=== PATIENT | male | born 1950 | race Caucasian/White ===

== ENCOUNTER 2023-10-09 17:28 | Outpatient (CLI) | payer MEDICARE, OTHER ==
--- NOTE | 2023-10-10 11:42 | XRAY Report ---
PROCEDURE: Foot 3+V LT INDICATIONS: PAIN IN LEFT FOOT TECHNIQUE: 3 views of the foot were acquired. COMPARISON: None. FINDINGS: Bones: No fractures or dislocations. No suspicious bony lesions. Scattered IP degenerative narrowi ng, most severe at the first MTP joint.. Periarticular osteophytes are present. No erosions. Soft tissues: No tibiotalar joint effusion. Achilles tendon appears normal. IMPRESSION: Arthritic changes most severe at the first MTP joint. Reviewed by: Jill Smith MD on 10/10/2023 11:40 AM PDT Approved by: Jill Smith MD on 10/10/2023 11:40 AM PDT Station ID: [id number]
== END 2023-10-09 17:29 | disposition home or self-care (01) ==
LOC: DI 17:28
PROVIDERS: ATTEND Physician Assistant Medical
DX: M19.072 Primary osteoarthritis, left ankle and foot (principal)
CPT/HCPCS: 36415; 84550